=== PATIENT | female | born 1965 | race Caucasian/White ===

== ENCOUNTER 2018-02-14 10:48 | Emergency (ER) | payer MEDICAID ==
[2018-02-14 11:07] VITALS: BMI 29.8
[2018-02-14] MEDS ORDERED: TDAP Vaccine 0.5 mL Syr IM ONE (11:43)
[2018-02-14] MEDS ORDERED: Silver Sulfadiazine 1% Cream (25 gm) TP STA (11:45)
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
[2018-02-14 11:53] LABS: PH,URINE 6.5 (4.7-8.0); URINE BILIRUBIN NEGATIVE (NEGATIVE); URINE BLOOD SMALL (NEGATIVE); URINE GLUCOSE (UA) NEGATIVE (NEGATIVE); URINE LEUKOCYTE ESTERASE NEGATIVE Leu/uL (NEGATIVE); URINE PROTEIN NEGATIVE mg/dL (<30 mg/dL); URINE UROBILINOGEN 0.2 E.U./dL (<1 E.U./dL)
[2018-02-14 12:04] LABS: URINE APPEARANCE CLEAR (CLEAR); URINE COLOR YELLOW (YELLOW)
[2018-02-14 12:42] LABS: URINE WBC 0 - 2 /hpf (0-6)
[2018-02-14 12:43] LABS: URINE BACTERIA MOD (NEG)
[2018-02-14 13:47] VITALS: RESP 18; TEMP 98.2; O2SAT 96
[2018-02-14 13:56] VITALS: BP 136/72; PULSE 55
== END 2018-02-14 12:09 | disposition home or self-care (01) ==
LOC: ED 10:48
DX: T23.201A Burn of second degree of right hand, unspecified site, initial encounter (principal); X10.0XXA Contact with hot drinks, initial encounter; Y92.89 Other specified places as the place of occurrence of the external cause; Y99.8 Other external cause status; Z23 Encounter for immunization